=== PATIENT | male | born 1980 | race Caucasian/White ===

== ENCOUNTER 2018-08-02 07:07 | Outpatient (CLI) | payer BC ==
[~2018-08-02] VITALS: Ht 182.9 cm; Wt 99.8 kg
[~2018-08-02 07:07] MED LIST: CEFU500T5 PO; EQUATE ACID REDUCER PO; OXYC1TAB17 PO
[2018-08-02] MEDS ORDERED: PANT40TA2 PO (09:15)
== END 2018-08-02 09:17 | disposition home or self-care (01) ==
LOC: PREOP 07:07
PROVIDERS: ATTEND Surgery
DX: Z01.818 Encounter for other preprocedural examination (principal)

== ENCOUNTER 2018-08-05 11:14 | Day surgery (SDC) | payer BC, OTHER ==
[~2018-08-05] VITALS: Ht 182.9 cm; Wt 99.8 kg
[~2018-08-05 11:14] MED LIST changes: +PANT40TA2 PO
[2018-08-05] MEDS ORDERED: NS IV 500 ML 500 ML ONE (11:20)
[2018-08-05 11:45] VITALS: BP 134/83
[2018-08-05] MEDS ORDERED: NS IV 500 ML 500 ML IV PRN (12:05)
[2018-08-05] MEDS ORDERED: HURRICAINE EXT TUBE (BENZOCAINE) XX PRN (12:15)
[2018-08-05] MEDS ORDERED: NALOXONE 0.4 MG/ML 1 ML (NARCAN) VIAL IVP PRN (12:15)
[2018-08-05] MEDS ORDERED: MIDAZOLAM 2 MG/2 ML (VERSED) VIAL IVP ONE (12:15)
[2018-08-05] MEDS ORDERED: fentaNYL INJECTION 100 MCG/2 ML AMP IVP ONE (12:15)
--- NOTE | 2018-08-05 12:19 | Conscious Sedation/ASA ---
Conscious Sedation Pre-Proced Time 12:00 ASA Score 2 For ASA 3 and 4: Consider anesthesia and medical clearance. Also, for patients with a history of failed moderate sedation consider anesthesia. Airway Lungs Heart ASA score ASA 1: a normal healthy patient ASA 2: a patient with a mild systemic disease (mid diabetes, controlled hypertension, obesity ASA 3: a patient with a severe systemic disease that limits activity (angina , COPD, prior Myocardial infarction) ASA 4: a patient with an incapacitating disease that is a constant threat to life (CHF, renal failure) ASA 5: a moribund patient not expected to survive 24 hrs. (ruptured aneurysm) ASA 6: a declared brain- patient whose organs are being harvested. For emergent operations, add the letter E after the classification Mallampati Classification Grade 2 Sedation Plan Analgesia, Amnesia, Plan communicated to team members, Discussed options with patient/fam, Discussed risks with patient/fam The patient is an appropriate candidate to undergo the planned procedure, sedation, and anesthesia. The patient immediately re-assessed prior to indication. VASYL BOX MD Aug 05, 2018 12:19
--- NOTE | 2018-08-05 12:19 | Progress Note-Pre Operative ---
Pre-Operative Progress Note H&P Reviewed The H&P was reviewed, patient examined and no changes noted. Date Seen by Provider: Aug 05, 2018 Time Seen by Provider: 12:00 Date H&P Reviewed: Aug 05, 2018 Time H&P Reviewed: 12:00 Pre-Operative Diagnosis: GERD, hx rios's VASYL BOX MD Aug 05, 2018 12:19
[2018-08-05] MEDS ORDERED: SUCR1TAB36 PO (12:21)
--- NOTE | 2018-08-05 12:22 | Discharge Inst-Surgical ---
D/C Lap Instructions-KIDO New, Converted, or Re-Newed RX: RX on Chart Follow Up 3 yrs Activity as tolerated High Fiber Diet 25g or more per day Avoid Alcohol, Caffeine, Spicy [place] and Acid foods. Drink 64 fluid oz or more of fluids per day. Symptoms to Report: Fever over 101 degree F, Nausea/Vomiting If any problems/questions: Contact your physician or go to Emergency Room VASYL BOX MD Aug 05, 2018 12:22
[2018-08-05] MEDS ORDERED: morphine INJ 10 MG/ML 1ML (SYR OR VIAL) IV PRN (12:30)
[2018-08-05] MEDS ORDERED: HYDROcodone/APAP 5 MG/325 MG (LORTAB) TAB PO PRN (12:30)
[2018-08-05] MEDS ORDERED: ACETAMINOPHEN 325 MG TABLET PO PRN (12:30)
[2018-08-05] MEDS ORDERED: ONDANSETRON 4 MG/2 ML (SDV) Z0FRAN IV PRN (12:30)
[2018-08-05] MEDS ORDERED: fentaNYL INJECTION 100 MCG/2 ML AMP ONE (12:42)
[2018-08-05] MEDS ORDERED: LIDOCAINE JELLY 2% 6 ML SYRINGE ONE (12:42)
[2018-08-05] MEDS ORDERED: MIDAZOLAM 2 MG/2 ML (VERSED) VIAL ONE ×5 (12:42→12:43)
[2018-08-05] MEDS ORDERED: HURRICAINE EXT TUBE (BENZOCAINE) ONE (12:43)
--- NOTE | 2018-08-05 13:21 | Discharge Inst-Surgical ---
D/C Lap Instructions-KIDO New, Converted, or Re-Newed RX: RX on Chart Follow Up Appt in 6 weeks Activity as tolerated High Fiber Diet 25g or more per day Avoid Alcohol, Caffeine, Spicy [place] and Acid foods. Drink 64 fluid oz or more of fluids per day. Symptoms to Report: Fever over 101 degree F, Nausea/Vomiting If any problems/questions: Contact your physician or go to Emergency Room VASYL BOX MD Aug 05, 2018 13:21
--- NOTE | 2018-08-05 13:21 | Progress Note-Post Operative ---
Post-Operative Progess Note Surgeon (s)/Car Spotter (s) Surgeon VASYL BOX MD Car Spotter: none Pre-Operative Diagnosis GERD, hx rios's Post-Operative Diagnosis reflux esophagitis(stage2-3), moderate HH(3cm), mild-mod gastritis. Procedure & Operative Findings Date of Procedure 08/05/18 Procedure Performed/Findings EGD with bx. Anesthesia Type cs Estimated Blood Loss Estimated blood loss (mL): minimal Specimens/Packing Specimens Removed ge jxn, antrum VASYL BOX MD Aug 05, 2018 13:21
[2018-08-05 13:30] VITALS: BP 99/60
[2018-08-05 13:55] VITALS: BP 110/64
[2018-08-05 13:57] VITALS: BP 110/64
--- NOTE | 2018-08-05 15:13 | OPERATIVE REPORT ---
DATE OF SERVICE: 08/05/2018 ATTENDING PRIMARY CARE PHYSICIAN: Dr. Guillaume. PREOPERATIVE DIAGNOSES: Gastroesophageal reflux disease with history of Luis's esophagus, regurgitation. POSTOPERATIVE DIAGNOSES: Reflux esophagitis between stage II to III with cephalad migration of the GE junction, most likely consistent with Luis's esophagus. Moderate size hiatal hernia approximately 3 cm in size, mild to moderate gastritis. No distal obstructions. PROCEDURE: Esophagogastroduodenoscopy with biopsy. SURGEON: Vasyl Box MD ANESTHESIA: Conscious sedation. ESTIMATED BLOOD LOSS: Minimal. FINDINGS: Reflux esophagitis between stage II to III with cephalad migration of the GE junction, most likely consistent with Luis's esophagus. Moderate size hiatal hernia approximately 3 cm in size, mild to moderate gastritis. No distal obstructions. DISPOSITION: The patient tolerated the procedure well. INDICATIONS: The patient is a 38-year-old male with worsening gastroesophageal reflux disease, which has progressed to regurgitation as well as coughing and hoarseness. He did have an EGD in 2011 and was found to have a reflux esophagitis as well as gastritis and biopsies were positive for Luis esophagus and he was treated medically. 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 DESCRIPTION OF PROCEDURE: The patient was brought to the endoscopy suite, laid in the left lateral decubitus position. After adequate IV pain and sedative medications and conscious sedation anesthesia, the mouthpiece was applied. Endoscope was placed in the mouth, visualizing the pharynx and hypopharyngeal region. Vocal cords, epiglottis and vallecula identified and appeared to be normal. The endoscope was then gently intubated at the esophageal opening and esophagus insufflated. The endoscope was then advanced to the [facility] through the first and third portion of the esophagus at the level of the GE junction, a reflux esophagitis stage II identified. There were no ulcers or strictures identified in this region. At the GE junction, a reflux esophagitis between stage II or III was identified. There was also cephalad migration of the GE junction, most likely consistent with a clinical Luis's esophagus. There were no ulcers or strictures identified in this region. Biopsy was taken of the GE junction using forceps with visualization of good hemostasis. The endoscope was then advanced into the stomach and endoscope retroflexed, visualizing a moderate sized hiatal hernia approximately 3 cm in size. This was more significant than his previous endoscopy. There was a mild to moderate gastritis. No formal ulcerations, polyps or any neoplasms. A biopsy was taken of the stomach antrum to rule out H. pylori with visualization of good hemostasis. The endoscope was then advanced to the pylorus and the first and second portion of the duodenum, which appeared normal with no distal obstructions. The endoscope was then slowly withdrawn while taking a second look and suctioning of residual air with no additional findings. The patient tolerated the procedure well. We will await the biopsy results and continue with medical management for now with the necessary lifestyle and diet accommodation including small and more frequent meals, avoidance of eating at night as well as head elevation while lying supine. He also needs to continue with his Dexilant or other proton pump inhibitor as well as avoid caffeinated beverages, spicy, greasy and acidic foods as well as alcoholic beverages. Due to his significant reflux esophagitis and Luis's esophagus and the finding of the hiatal hernia, he may be a candidate for antireflux procedure; however, before proceeding with this, we would do the proper testing, which would include esophageal manometry study to rule out any esophageal dysmotility disorders. Job ID: [id number] DocumentID: [id number] Dictated Date: 08/05/2018 13:28:33 Chief Projectionist Date: 08/05/2018 15:13:01 Dictated By: VASYL BOX MD
== END 2018-08-05 13:58 | disposition home or self-care (01) ==
LOC: ENDO 11:14
PROVIDERS: ATTEND Surgery
DX: K21.0 Gastro-esophageal reflux disease with esophagitis (principal); K44.9 Diaphragmatic hernia without obstruction or gangrene; K29.70 Gastritis, unspecified, without bleeding; Z87.891 Personal history of nicotine dependence; Z79.899 Other long term (current) drug therapy

== ENCOUNTER 2019-10-31 19:06 | Emergency (ER) | payer OTHER ==
[~2019-10-31] VITALS: Ht 182 cm; Wt 93.2 kg
[~2019-10-31 19:06] MED LIST changes: +SUCR1TAB36 PO
[2019-10-31 19:14] VITALS: BP 138/98
[2019-10-31] MEDS ORDERED: TETANUS,DIPTH,PERTUSS P/F (BOOSTRIX) 0.5 ML VIAL IM ONE ×2 (19:16→19:30)
--- NOTE | 2019-10-31 19:22 | ED Integumentary General ---
General Chief Complaint: Laceration Stated Complaint: R HAND LAC Nursing Triage Note: Pt to RM 7 with lac to right hand while washing dishes. Source: patient Exam Limitations: no limitations History of Present Illness Date Seen by Provider: Oct 31, 2019 Time Seen by Provider: 19:12 Initial Comments Patient arrives ER by private conveyance with chief complaint he was washing dishes and a glass broke causing a small C-shaped laceration/skin flap on the back of his right hand first metacarpal. He has no history of immunocompromise or diabetes. He has no significant medical history. Allergy to penicillin. Allergies and Home Medications Allergies Coded Allergies: Penicillins (Unverified Allergy, Mild, 06/01/11) Home Medications Pantoprazole Sodium 40 Mg Tablet.dr, 40 MG PO BID, (Reported) Sucralfate 1 Gm Tablet, 1 GM PO QID Prescribed by: VASYL BOX on 08/05/18 1221 Patient Home Medication List Home Medication List Reviewed: Yes Review of Systems Review of Systems Constitutional: No chills, No diaphoresis EENTM: No ear discharge, No hearing loss Respiratory: No cough, No phlegm Cardiovascular: No chest pain, No edema Gastrointestinal: No abdominal pain, No nausea All Other Systems Reviewed Negative Unless Noted: Yes Past Tdtfilg-Qpcvpz-Oipfgj Hx Patient Social History Alcohol Use: Rarely Uses Number of Drinks Today: GG Alcohol Beverage of Choice: Whiskey Recreational Drug Use: No Smoking Status: Former Smoker Type Used: Cigarettes Former Smoker, Quit: Aug 02, 2010 2nd Hand Smoke Exposure: No Recent Foreign Travel: No Contact w/Someone Who Travel: No Recent Infectious Disease Expo: No Recent Hopitalizations: No Immunizations Up To Date Tetanus Booster (TDap): More than 5yrs Seasonal Allergies Seasonal Allergies: No Past Medical History Surgeries: Yes (EGD & WISDOM TEETH OUT) Testicular Respiratory: No Cardiac: No Neurological: No Reproductive Disorders: Yes (RECENT RAMSEY ORCHIOPEXY) Sexually Transmitted Disease: No HIV/AIDS: No Genitourinary: No Gastrointestinal: Yes Gastroesophageal Reflux Musculoskeletal: No Endocrine: No HEENT: No Cancer: No Psychosocial: No Integumentary: No Blood Disorders: No Family Medical History Family history: Cardiovascular disease Family history: Hypertension 19 FATHER 19 MOTHER No Family History of: Family history: Diabetes mellitus Physical Exam Vital Signs Vital Signs - First Documented 10/31/19 19:14 Temp 36.6 Pulse 69 Resp 17 B/P (MAP) 138/98 (111) Pulse Ox 98 O2 Delivery Room Air Capillary Refill : Less Than 3 Seconds General Appearance: WD/WN, no apparent distress HEENT: PERRL/EOMI, pharynx normal Neck: full range of motion, normal inspection Cardiovascular: normal peripheral pulses, regular rate, rhythm Respiratory: no respiratory distress, no accessory muscle use Neurologic/Psychiatric: alert, normal mood/affect, oriented x 3 Skin: other (1 cm C-shaped skin flap over the first metacarpal dorsal side right hand. Minor superficial linear abrasions over the second third and fourth digits. Hemostatic.) Procedures/Interventions Wound Location: Upper Extremities Other Wound Location Right hand dorsal first metacarpal Wound's Depth, Shape: superficial, flap Wound Explored: clean Betadine Prep?: Yes (alcohol) Wound Debrided: minimal Other Closure Supply: Wound Adhesive Progress Wound was cleaned with alcohol reflected and inspected and then closed with cyanoacrylate. Patient tolerated the procedure well. Hemostatic. Progress/Results/Core Measures Results/Orders Vital Signs/I&O 10/31/19 19:14 Temp 36.6 Pulse 69 Resp 17 B/P (MAP) 138/98 (111) Pulse Ox 98 O2 Delivery Room Air Blood Pressure Mean: 111 Departure Impression Primary Impression: Laceration of right hand Qualified Codes: S61.411A - Laceration without foreign body of right hand, initial encounter Disposition: 01 HOME, SELF-CARE Condition: Stable Departure-Patient Inst. Decision time for Depature: 19:17 Referrals: MICHAEL ALVAREZ MD (PCP/Family) Primary Care Physician Patient Instructions: Laceration Repair With Glue (DC) Add. Discharge Instructions: Keep the wound clean with regular soap and water. If you experience any problems such as redness, swelling or increasing pain and return to your doctor or the ER for further evaluation. The glue will fall off on its own in the next 7-10 days. All discharge instructions reviewed with patient and/or family. Voiced under standing. KULWINDER ROBERSON Oct 31, 2019 19:22
== END 2019-10-31 19:29 | disposition home or self-care (01) ==
LOC: EDUNIT# 19:06 → ER 19:08
DX: S61.411A Laceration without foreign body of right hand, initial encounter (principal); W25.XXXA Contact with sharp glass, initial encounter; Y93.G1 Activity, food preparation and clean up; Z87.891 Personal history of nicotine dependence; Z88.0 Allergy status to penicillin; Z23 Encounter for immunization
CPT/HCPCS: 90715; 99284

== ENCOUNTER → 2021-05-07 | Outpatient (CLI) | payer OTHER ==
--- NOTE | 2021-05-07 09:04 | Diagnostic Imaging Report ---
PROCEDURE: MRI right joint lower extremity without contrast. TECHNIQUE: Multiplanar, multisequence non contrast-enhanced MRI of the right lower extremity was accomplished. INDICATION: Chronic right knee pain COMPARISON: None FINDINGS: No acute fracture is seen in the right knee. Alignment is normal. There is no joint effusion. There is mild fluid in the popliteal recess. The articular cartilage in the patellofemoral compartment demonstrates surface irregularity with no large defects. The articular cartilage in the medial and lateral compartments demonstrate no full-thickness defects. The signal on the coronal STIR is low, but no tear is appreciated of the medial or lateral menisci. The anterior and posterior cruciate ligaments are intact. The medial collateral ligament is intact. The lateral collateral ligamentous complex is intact. The extensor mechanism is intact. The medial and lateral retinacula appear intact. Soft tissues about the knee are otherwise unremarkable. IMPRESSION: 1. No meniscus or ligament tear is seen in the right knee. 2. Mild cartilage loss at the patella with no full-thickness defects. 3. Fluid in the popliteal recess. No significant joint effusion is seen. Dictated by: Dictated on workstation # [id number]
== END ==
LOC: RAD 08:00
PROVIDERS: ATTEND Nurse Practitioner Adult Health
DX: M23.91 Unspecified internal derangement of right knee (principal)
CPT/HCPCS: 73721